=== PATIENT | male | born 1955 | race African-American/Black ===

== ENCOUNTER → 2019-06-19 | Outpatient (CLI) | payer BC ==
[2019-06-19 14:16] LABS: ALBUMIN 4.1 g/dL (3.4-5.0); CALCIUM 9.3 mg/dL (8.5-10.1); CREATININE 1.1 mg/dL (0.7-1.3); POTASSIUM 3.9 mmol/L (3.5-5.1); TOTAL BILIRUBIN 0.4 mg/dL (<0.1-1.0); TOTAL PROTEIN 7.3 g/dL (6.4-8.2)
== END ==
LOC: MRI 09:46
PROVIDERS: Psychiatry & Neurology Neurology
DX: R90.82 White matter disease, unspecified (principal); G47.33 Obstructive sleep apnea (adult) (pediatric)

== ENCOUNTER → 2021-08-29 | Outpatient (CLI) | payer OTHER ==
[~2021-08-29] MED LIST: LIPITOR 20 MG T20 M1 PO; METFORMIN HCL500 M3 PO; METHIMAZOLE5 MG PO; NEURONTIN100 MG PO; OMEPRAZOLE40 MG PO; PIOGLITAZONE15 MG; VERAPAMIL ER180 M1 PO
[2021-08-29 08:49] LABS: URINE BILIRUBIN NEGATIVE (Negative); URINE BLOOD NEGATIVE (Negative); URINE CLARITY CLEAR; URINE COLOR YELLOW; URINE GLUCOSE-RANDOM* NEGATIVE (Negative); URINE KETONES NEGATIVE (Negative); URINE LEUKOCYTES-REFLEX NEGATIVE (Negative); URINE NITRITE-REFLEX NEGATIVE (Negative); URINE PROTEIN (DIPSTICK) NEGATIVE (Negative)
[2021-08-29 08:52] LABS: HEMATOCRIT 42.6 % (42.0-52.0); HEMOGLOBIN 13.7 gm/dL (14.0-18.0); MCH 27.5 pg (26.0-34.0); MCHC 32.3 g/dL (28.0-37.0); MCV 85.1 fL (80.0-100.0); RDW 14.7 % (10.5-14.5)
[2021-08-29 08:58] LABS: WBC 2.3 thou/uL (4.0-11.0)
[2021-08-29 09:06] LABS: ALBUMIN 4.1 g/dL (3.4-5.0); CALCIUM 8.6 mg/dL (8.5-10.1); POTASSIUM 4.1 mmol/L (3.5-5.1)
[2021-08-29 09:10] LABS: INR 1.04; PROTIME 11.3 Seconds (10.5-12.1)
--- NOTE | 2021-08-29 10:08 | EKG ---
[address] [address] ELECTROCARDIOGRAM REPORT Name: ALEXANDRA ACUNA [facility]: [facility] [id number] Admission: 08/29/21 Attend Phys: Rj Munoz MD Discharge: Date of : 59 Report #: [id number] [facility] Test Date: 2021-08-29 Test Time: 08:43:49 Pat Name: ALEXANDRA ACUNA Department: Room: Gender: M Early Childhood Director: CLIVE DUTTON : 1955 Requested By: Rj Munoz Order Number: [id number] : Nain Muro Measurements Intervals Ladd Rate: 59 P: 49 OK: 193 QRS: -11 QRSD: 84 T: 35 QT: 397 QTc: 394 Interpretive Statements Sinus rhythm No previous ECG available for comparison Electronically Signed On 08-29-2021 10:07:57 DISTRIBUTION AGENT by Nain Muro [email or web address] <ELECTRONICALLY SIGNED> By: Nain Muro MD, [facility] 08/29/21 [id number] Nain Muro MD, FACC /EPI
== END ==
LOC: PAC 08:07
PROVIDERS: ATTEND Orthopaedic Surgery
DX: M17.11 Unilateral primary osteoarthritis, right knee (principal)

== ENCOUNTER 2021-08-31 06:05 | Day surgery (SDC) | payer OTHER ==
[~2021-08-31] VITALS: Ht 177.8 cm; Wt 85.7 kg
--- NOTE | ~2021-08-31 | O ---
[facility] [place] [address] OPERATIVE REPORT Name: ALEXANDRA ACUNA Room #: 446-P [facility] M.R.#: [id number] Admission: 08/31/21 Attend Phys: Rj Munoz MD Discharge: Date of : 59 Report #: [id number] THIS REPORT FOR: cc: Juancarlos Geiger MD, Stanley P. MD Abraham,Rj Bush MD ~ DATE OF SERVICE: 08/31/2021 PREOPERATIVE DIAGNOSIS: Right knee osteoarthritis. POSTOPERATIVE DIAGNOSIS: Right knee osteoarthritis. PROCEDURE: Right total knee arthroplasty using Navio robotic assistance. SURGEON: Rj Munoz MD ASSISTANT CROSS COUNTRY COACH: Meg Chairez PA-C. INDICATION FOR ASSISTANT CROSS COUNTRY COACH: Throughout the case, extensive retraction, manipulation of the knee was required. This was afforded to me by my observation assistant. ANESTHESIA: LMA. IMPLANTS: [employer] size 7 Journey II BCS Oxinium femur, size 6 tibia, size 12 constrained polyethylene and size 35 patella. TOURNIQUET TIME: 72 minutes. ESTIMATED BLOOD LOSS: ____ mL. COMPLICATIONS: None. SPECIMENS: None. CONDITION UPON LEAVING THE OR: Stable. INDICATIONS FOR PROCEDURE: The patient is a 65-year-old gentleman with right knee posttraumatic osteoarthritis, seen previously and had injured anterior cruciate ligament, underwent reconstruction, has gone on to have a subsequent traumatic ____ discussion with him, he elected for right total knee arthroplasty. DESCRIPTION OF PROCEDURE: Risks, benefits, alternatives, complications were discussed in detail with the patient including but not limited to risk of anesthesia, risk of damage to nerves, arteries, blood vessels, risk for infection, bleeding, risk for continued knee pain and need for reoperation. [facility] [address] [place] [address] OPERATIVE REPORT Name: ALEXANDRA ACUNA Room #: 446[facility]P [facility] [id number] Admission: 08/31/21 Attend Phys: Rj Munoz MD Discharge: Date of : 59 Report #: [id number] Informed consent was obtained from the patient. Right knee was appropriately marked in the preoperative holding area. IV Ancef was given for preoperative antibiotics. He was brought to the operating room and placed in supine position on the operating room table. LMA anesthesia was induced without complication. Tourniquet was placed on the right thigh. Right lower extremity was prepped and draped in normal sterile fashion. Timeout was performed properly identifying the patient and procedure as well as the instrumentation and implants. All in the operating room in agreement. Right lower extremity was exsanguinated, tourniquet was inflated. Tourniquet time was 72 minutes. The previous longitudinal scar was then used and incision was made with 10 blade through the skin. Dissection was taken down to the fascia and deep flaps were developed medially and laterally. Fresh 10 blade was used to make a medial parapatellar arthrotomy and the knee was inspected. There was severe tricompartmental osteoarthritis. ACL and PCL were removed sharply. Reference pins were placed in the femur and the tibia. The knee was then digitally mapped using the Soysuper robotic system. Intraoperative plan was made. We sized the size 7 femur, the size 6 tibia and a 10 spacer. After acceptance of the intraoperative plan, the distal femoral cut was made with Navio bur. Distal femoral cutting block was pinned in place and chamfer cuts were made. Attention was turned to the tibia. Remainder of the menisci removed with Bovie cautery. Tibial resection guide was pinned in place using Navio for placement and tibial resection was made. Flexion and extension gaps were checked and found to have good balance in flexion and extension both medially and laterally. Tibia sized, found to be a size 6. Size 6 tibial trial was placed, pinned and punched. A size 7 femoral trial was placed and box cut was made. This was then trialed with a size 10 up to a size 12 polyethylene. Size 12 polyethylene demonstrated 1-2 mm of laxity laterally with up to 3 mm medially in mid flexion. It was felt we can make up for this with a constrained implant. A 9 mm of bone was removed from the posterior surface of the patella and a size 35 patellar trial button was placed. Knee was taken through range of motion, found to be stable, found to have good patellar tracking. Trial components were removed. Bone ends were thoroughly irrigated with normal saline. A final size 6 tibia, size 7 Journey II BCS Oxinium femur and a size 35 patella were cemented in place using standard cementation techniques. While the cement cured, a periarticular injection consisting of morphine, ropivacaine, epinephrine, Toradol was placed around the knee joint capsule. After the cement cured, tourniquet was deflated. Hemostasis was obtained with Bovie cautery. A final size 12 constrained polyethylene was placed. A gram of vancomycin was placed deep in the joint. Fascia was closed with 0 Vicryl. Skin was closed with 2-0 Vicryl. Skin staple and a CHARLOTTE dressing was applied. The patient tolerated this procedure well and went to recovery room under care of anesthesia postoperatively. By: [id number] Rj Munoz MD /nt
[2021-08-31 12:50] VITALS: BP 144/81
--- NOTE | 2021-08-31 13:24 | NUR ---
ASSUMED PT CARE FROM PACU AT 1250. PT IS ALERT & ORIENTED X4. PT HAS IV SITE ON R HAND. PT IS ACCUCHECK ACHS. PT IS ON ROOM AIR. PT HAS CHARLOTTE DRESSING, POLAR CARE, BILATERAL KNEE HIGH JOSE HOSES. PT HAS BRUISE ON RIGHT EYE AND GIVEN ICE PACK. PT AT THE BEDSIDE. FINISHED ADMISSION. WILL CONTINUE TO MONITOR PT. FOLLOW POC.
[2021-08-31 15:50] VITALS: BP 123/61
[2021-08-31 22:19] VITALS: BP 134/74
[2021-09-01 11:53] VITALS: BP 134/74
[2021-09-01 12:01] VITALS: BP 134/74
[2021-09-01 16:21] VITALS: BP 134/74
--- NOTE | 2021-09-01 17:30 | NUR ---
PT ASSESSED AT START OF SHIFT. MEDS GIVEN FOR PAIN FOR THERAPY SESSION. PT DID WELL AND WAS SEEN BY PA AND DISCHARGED HOME IF RELEASED PER THERAPIST. PT DISCHARGED LATE AFTERNOON AFTER TAKING SHOWER. AT BEDSIDE ALL SHIFT.
== END 2021-09-01 17:20 | disposition home health service (06) ==
LOC: OR → 4S 12:26 → OR 09-01 17:20
PROVIDERS: ATTEND Orthopaedic Surgery
DX: M17.11 Unilateral primary osteoarthritis, right knee (principal); M25.561 Pain in right knee; I10 Essential (primary) hypertension; K21.9 Gastro-esophageal reflux disease without esophagitis; Z98.890 Other specified postprocedural states; Z79.899 Other long term (current) drug therapy; Z20.822 Contact with and (suspected) exposure to COVID-19
CPT/HCPCS: 10102; 50101; 50415; 50954; 51130; 51225; 51320; 51412; 52001; 52282; 53000; 53078; 53365; 56527; 56528; 57095; 57103; 57110; 57127; 57180; 62110; 62900; 64039; 70005